=== PATIENT | female | born 1980 | race African-American/Black ===

== ENCOUNTER 2022-10-29 22:26 | Emergency (ER) | payer MEDICAID ==
[~2022-10-29] VITALS: Ht 165.1 cm; Wt 64.9 kg
--- NOTE | 2022-10-29 22:27 | NUR ---
Triaged and placed patient to ER bed 7 for evaluation. Report given to Truong CUMMINGS for continuity of care. Bed placed in lowest position with side rails up. Instructed to notify ED staff for any changes in condition or worsening of symptoms while waiting to be seen by a provider. Patient verbalized understanding.
[2022-10-29 22:29] VITALS: BP_SYST 132
--- NOTE | 2022-10-29 22:37 | NUR ---
Dr. Santos at bedside examining the patient.
--- NOTE | 2022-10-29 22:44 | NUR ---
pt came in with abnormal labs 6.1 hgb at primary doctor office. she wanted to follow up. Waiting for
[2022-10-29 23:04] LABS: HEMATOCRIT 26.6 % (36-48); HEMOGLOBIN 7.7 g/dL (12.0-16.0); WHITE BLOOD COUNT (AUTO) 7.2 K/uL (4.8-10.8)
[2022-10-29 23:14] LABS: CALCIUM 8.7 mg/dL (8.4-11.0); CREATININE 0.72 mg/dL (0.55-1.30)
[2022-10-29 23:19] LABS: MEAN CORPUSCULAR HEMOGLOBIN 19 pg (27-31); MEAN CORPUSCULAR HGB CONC 29 % (32-36); MEAN CORPUSCULAR VOLUME 64 fL (79.0-98.0); PLATELET COUNT (AUTO) 455 K/uL (130-430); RED BLOOD CELL COUNT(AUTO) 4.15 MIL/uL (4.2-6.2); RED CELL DISTRIBUTION WIDTH 19.9 % (9.0-15.0)
[2022-10-29 23:33] VITALS: BP_SYST 132
[2022-10-30 00:09] LABS: BASOPHILS % (MANUAL) 0 % (0-2); EOSINOPHILS % (MANUAL) 3 % (0-7); LYMPHOCYTES % (MANUAL) 49 % (20-46); MONOCYTES % (MANUAL) 3 % (0-11)
== END 2022-10-29 23:33 | disposition home or self-care (01) ==
LOC: SED 22:26
DX: D64.9 Anemia, unspecified (principal); J45.909 Unspecified asthma, uncomplicated; Z79.899 Other long term (current) drug therapy
CPT/HCPCS: 36415; 80048; 85007; 85025; 85027; 99283